=== PATIENT | female | born 1935 ===

== ENCOUNTER 2018-12-08 14:49 | Emergency (ER) | payer OTHER ==
[~2018-12-08] VITALS: Ht 157.5 cm; Wt 64.9 kg
[~2018-12-08 14:49] MED LIST: CALAN SR 120MG120 MG PO; CATAFLAM50 MG PO; COZAAR25 MG PO; ZETIA10 MG PO
== END 2018-12-08 19:14 | disposition home or self-care (01) ==
LOC: ER 14:49
DX: R19.7 Diarrhea, unspecified (principal)

== ENCOUNTER 2019-03-17 11:33 | Emergency (ER) | payer OTHER ==
[~2019-03-17] VITALS: Ht 157.5 cm; Wt 63.5 kg
== END 2019-03-17 15:26 | disposition home or self-care (01) ==
LOC: ER 11:33
DX: B34.9 Viral infection, unspecified (principal)

== ENCOUNTER 2021-08-08 08:00 | Outpatient (CLI) | payer OTHER | END 2021-08-08 08:30 | disposition home or self-care (01) | LOC: PPH VACUNA 08:00 | PROVIDERS: ATTEND Emergency Medicine Pediatric Emergency Medicine | DX: Z23 Encounter for immunization (principal) ==

== ENCOUNTER 2022-10-12 10:16 | Emergency (ER) | payer OTHER ==
[~2022-10-12] VITALS: Ht 175.3 cm; Wt 72.6 kg
== END 2022-10-12 13:06 | disposition home or self-care (01) ==
LOC: ER 10:16
DX: R42 Dizziness and giddiness (principal); Z88.0 Allergy status to penicillin; Z88.8 Allergy status to other drugs, medicaments and biological substances